=== PATIENT | male | born 1990 | race Two or more races ===

== ENCOUNTER 2020-08-12 15:31 | Emergency (ER) | payer SELFPAY ==
[~2020-08-12] VITALS: Ht 172.7 cm; Wt 64.0 kg
[2020-08-12] MEDS ORDERED: SODIUM CHLORIDE 0.9% 1,000 ML IV ONE (16:04)
[2020-08-12 16:20] LABS: BASOPHILS % 0.5 % (0.0-2.0); EOSINOPHILS % 0.9 % (0.0-5.0); HEMATOCRIT. 43.6 % (42.0-52.0); HEMOGLOBIN. 14.9 g/dL (14.0-18.0); LYMPHOCYTES % 27.5 % (20.0-50.0); MEAN CORPUSCULAR HEMOGLOBIN 32.2 pg (28.0-32.0); MEAN CORPUSCULAR VOLUME 93.9 fL (80.0-94.0); MEAN PLATELET VOLUME 11.1 fl (7.4-10.4); MONOCYTES % 8.8 % (2.0-8.0); NEUTROPHILS % 62.3 % (40.0-76.0); PLATELET 124 x1000/uL (130-400); RED BLOOD CELL COUNT 4.64 mill/uL (4.7-6.1); RED CELL DISTRIBUTION WIDTH 13.9 % (11.6-14.6)
[2020-08-12 16:28] LABS: CHLORIDE 106 mEq/L (98-107)
[2020-08-12 16:33] LABS: ETHANOL BLOOD < 10 mg/dL
[2020-08-12 18:19] LABS: *AMPHETAMINES SCREEN URINE PRESUMTIVE POSITIVE (NEGATIVE); *BARBITURATES SCREEN URINE NEGATIVE (NEGATIVE); *BENZODIAZEPINES SCREEN URINE NEGATIVE (NEGATIVE); *COCAINE SCREEN URINE NEGATIVE (NEGATIVE); METHADONE URINE SCREEN NEGATIVE (NEGATIVE)
[2020-08-12 18:20] LABS: CANNABINOID URINE SCREEN NEGATIVE (NEGATIVE); OPIATES URINE SCREEN NEGATIVE (NEGATIVE); PHENCYCLIDINE URINE SCREEN NEGATIVE (NEGATIVE)
[2020-08-12 19:45] VITALS: BP 112/67
== END 2020-08-12 20:03 | disposition home or self-care (01) ==
LOC: ER 15:31
DX: R41.82 Altered mental status, unspecified (principal); T43.625A Adverse effect of amphetamines, initial encounter; Y92.89 Other specified places as the place of occurrence of the external cause; F17.290 Nicotine dependence, other tobacco product, uncomplicated
CPT/HCPCS: 36415; 70450; 71045; 80053; 80305; 80320; 85025; 93005; 96360; 99285; J7030; G0480